=== PATIENT | female | born 1995 ===

== ENCOUNTER → 2018-05-17 | Emergency (ER) | payer BC ==
[~2018-05-17] VITALS: Ht 165.1 cm; Wt 61.7 kg
[~2018-05-17] MED LIST: AMOX1TAB5 PO; IBUPROFEN800 MG PO
== END | disposition home or self-care (01) ==
LOC: ER 07:50
DX: S61.421A Laceration with foreign body of right hand, initial encounter (principal); S50.812A Abrasion of left forearm, initial encounter; S50.811A Abrasion of right forearm, initial encounter; S90.412A Abrasion, left great toe, initial encounter; S90.811A Abrasion, right foot, initial encounter; W25.XXXA Contact with sharp glass, initial encounter; Y93.89 Activity, other specified; Y92.098 Other place in other non-institutional residence as the place of occurrence of the external cause; Y99.8 Other external cause status